=== PATIENT | female | born 1990 | race Caucasian/White ===

== ENCOUNTER → 2021-07-13 | Outpatient (CLI) | payer MEDICAID ==
[~2021-07-13] MED LIST: GADOBUTROL 15 MMOL/15 ML (GADAVIST) VIAL IV ONE
[2021-07-13 08:08] LABS: CREATININE SERUM 0.89 MG/DL (0.60-1.30)
--- NOTE | 2021-07-13 10:41 | Diagnostic Imaging Report ---
PROCEDURE: MR imaging of the brain with and without contrast. TECHNIQUE: Multiplanar, multisequence MR imaging of the brain was performed with and without contrast. INDICATION: Vertigo. Left ear pain. Meniere's disease. COMPARISON: None. FINDINGS: Examination is limited by motion. No abnormal intracranial signal or enhancement. No restricted water diffusion. No hemosiderin deposition or evidence of intracranial hemorrhage. Normal morphology of the major midline structures, sella, posterior fossa and cerebellar pontine angle. Dedicated sequences to the level of the internal auditory canals demonstrates normal morphology with no suspicious mass or enhancement. No hydrocephalus or extra-axial fluid collections. Normal intracranial flow voids. The orbits are negative. Small amount of fluid in the sphenoid sinus. Mastoids are clear. Normal bone marrow signal. IMPRESSION: 1. Normal MRI of the brain without and with IV contrast. No acute findings. 2. Dedicated sequences to the level of the internal auditory canals demonstrate normal morphology with no suspicious mass or enhancement. 3. Small amount of fluid in the sphenoid sinus. Dictated by: Dictated on workstation # [id number]
== END ==
LOC: RAD 08:00
PROVIDERS: ATTEND Otolaryngology Otolaryngology/Facial Plastic Surgery
DX: H81.02 Meniere's disease, left ear (principal)
CPT/HCPCS: 36415; 70553; 82565; 84520